=== PATIENT | male | born 1955 | race American Indian/Alaskan Native ===

== ENCOUNTER 2016-09-02 09:11 | Outpatient (CLI) | payer OTHER ==
--- NOTE | 2016-09-02 10:24 | XRay Report ---
RIGHT SHOULDER RADIOGRAPHS INDICATION: Right shoulder pain. COMPARISON: None similar at this institution. FINDINGS: Frontal and Y views of the right shoulder, 3 projections demonstrate normal humeral head contour, well positioned against the glenoid. Distal clavicular spurring. Acromioclavicular distance approximately 8 mm. Preserved scapular contour. Normal visualized soft tissues, right ribs and lung. CONCLUSION: Mild right distal clavicular degenerative spurring and possible acromioclavicular widening, as described. Please correlate. Thank you for the opportunity to participate in this patient's care.
== END 2016-09-02 09:12 | disposition home or self-care (01) ==
LOC: XRAY 09:11
PROVIDERS: ATTEND Internal Medicine
DX: M25.511 Pain in right shoulder (principal)